=== PATIENT | male | born 1995 | race Hispanic/Latino ===

== ENCOUNTER 2023-05-05 20:39 | Emergency (ER) | payer OTHER, SELFPAY ==
--- OUTSIDE RECORDS SUMMARY | 2023-05-05 20:43 | XMS REPORT | Continuity of Care Document ---
:1995 Author Organization [facility] t Address [address] [place] [address] Care Team Providers Name Role Phone Pcp, Patient Does Not Have A Primary Care Physician [id number] ALTAGRACIA KILGORE Attending Clinician Unavailable Altagracia Kilgore MD Attending Clinician Payers Payer Name Policy Type Policy Number Effective Date Expiration Date S [facility] MEDICAID SSI PENDING 2022 PENDING 00:00:00 Problems Condition Condition Condition Status Onset Resolution Last Treating Co mments Source Name Details Category Date Date Treatment Clinician Date Social Social Disease Active Methodi anxiety anxiety 01-02 disorder disorder 00:00: Hospit a 00 l Cannabis Cannabis Disease Active Metho di use use 01-02 disorder, disorder, 00:00: Hosp dada mild, mild, 00 l abuse abuse Bipolar I Bipolar I Disease Active Met hodi disorder disorder 01-01 with with 00:00: Hospita depression depression 00 l , severe , severe Mushroom Mushroom Disease Active Unive rs poisoning poisoning 5-30 ity of 00:00: [place] 00 Medical Branch Bipolar Bipolar Disease Active Overview: Univ ers disorder disorder 14 Formattin ity of 00:00: g of this [place] 00 note Medical might be Branch different from the original. ICD10 Diagnosis Term Sampling Expert Utility Attention Attention Disease Active Overview: Univers deficit deficit -14 Formattin ity o f hyperactiv hyperactiv 00:00: g of this [place] ity ity 00 note Medical disorder disorder might be Bran ch (ADHD) (ADHD) different from the original. ICD10 Diagnosis Term Sampling Expert Utility Opposition Opposition Disease Active Overview : Univers al defiant al defiant 14 Formattin ity of disorder disorder 00:00: g of this [place] 00 note Medical might be Branch different from the original. ICD10 Diagnosis Term Sampling Expert Utility Impulse Impulse Disease Active Overview: Univ ers control control 03-11 Formattin ity o f disorder disorder 00:00: g of this [place] 00 note Medical might be Branch different from the original. ICD10 Diagnosis Term Sampling Expert Utility Allergies, Adverse Reactions, Alerts Allergy Allergy Status Severity Reaction(s) Onset Inactive Treating Comm ents Source Name Type Date Date Clinician IODINE DRUG Active Unknown-Cmnt 2021-06 Univ ers INGREDI 2-28 ity of 00:00: [place] 00 [facility] Iodine Propensi Active Unknown - 2021-06 Unive rs ty to See comments 08-25 ity of adverse 00:00: [place] reaction 00 [facility] iodine DA Active U Hives [facility] 9-21 00:00: 00 iodine DA Active U Hives [facility] 8-12 00:00: 00 Social History Social Habit Start Date Stop Date Quantity Comments Source History of tobacco 2014-11-24 Cigarette Smoker University of use 00:00:00 [facility] Sexual orientation [facility] Exposure to 2022-06-14 2022-06-24 Not sure University of SARS-CoV-2 (event) 00:00:00 20:47:00 [facility] Cigarettes smoked 2015-11-25 2015-11-25 Univers ity of current (pack per 00:00:00 00:00:00 [facility] ) - Reported Branch Cigarette 2015-11-25 2015-11-25 University of pack-years 00:00:00 00:00:00 [facility] Alcohol intake 2015-11-25 2015-11-25 0 /d University 00:00:00 00:00:00 [facility] Sex Assigned At [birth year] [facility] 00:00:00 00:00:00 Hospital Smoking Status Start Date Stop Date Source Tobacco smoking consumption Meth [facility] unknown Smokes tobacco daily 2015-11-25 00:00:00 Univers ity of [facility] Medications Ordered Filled Start Stop Current Ordering Indication Dosage Frequency Signature Comments Components Source Medication Medication Date Date Medication? Clinician (SIG) Name Name NaCl 0.9% 2021-06 No 1000mL at 999 Uni vers (NS) bolus 06-25 mL/hr, ity of infusion 05:00: 04:54 1,000 mL, [place] 1,000 mL 00 :00 IV Medical Infusion, Branch ONCE, 1 dose, On Wed06/24/22 at 2300, STAT QUEtiapine 2021-06 No 50mg 50 mg, Univ ers (SEROQUEL) 06-25 Oral, ity of tablet 50 04:45: 04:04 ONCE, 1 [place] mg 00 :00 dose, On Medical [facility] Branch 06/24/22 at 2245, Routine NaCl 0.9% 2021-06 No 1000mL at 999 Uni vers (NS) bolus 06-25 mL/hr, ity of infusion 04:00: 04:05 1,000 mL, [place] 1,000 mL 00 :00 IV Medical Infusion, Branch ONCE, 1 dose, On Wed06/24/22 at 2200, STAT diphenhydrA 2021-06 No 25mg 25 mg, Uni vers MINE 06-25 Slow IV ity of (BENADRYL) 03:00: 03:14 Push, [place] injection 00 :00 ONCE, 1 Medical 25 mg dose, On Branch 06/24/22 at 2100, STAT LORazepam 2021-06 No 1mg 1 mg, Slow U nivers (ATIVAN) 06-25 IV Push, ity of injection 1 03:00: 03:14 [place]CE[place] :[place] dose, On Medical Wed Branch 06/24/22 at 2100, STAT QUEtiapine 2021-06- No [id number] 50mg Take 1 Univers (SEROQUEL) 209-23 tablet by ity of 50 mg 00:00: 04:59 mouth in [place] tablet 00 :00 the Medical morning Branch and 1 tablet in the evening. Do all this for 90 days. Vital Signs Vital Name Observation Time Observation Value Comments Source Systolic blood 2022-06-25 05:00:00 104 mm[Hg] Univer sity of pressure [facility] Diastolic blood 2022-06-25 05:00:00 69 mm[Hg] [facility] Heart rate 2022-06-25 05:00:00 85 /min [facility] Respiratory rate 2022-06-25 05:00:00 13 /min [facility] Oxygen saturation in 2022-06-25 05:00:00 98 /min [facility] Arterial blood by [facility] Pulse oximetry [place] Body temperature 2022-06-25 02:54:00 37 [facility] Body height 2022-06-25 02:54:00 175.3 cm [facility] Body weight 2022-06-25 02:54:00 47.764 kg [facility] BMI 2022-06-25 02:54:00 15.55 kg/m2 [facility] Procedures Procedure Date / Time Performing Clinician Source Performed CBC WITH DIFF 2022-06-25 04:53:00 Altagracia Kilgore [facility] EKG-12 LEAD 2022-06-25 04:01:55 Altagracia Kilgore [facility] CREATINE KINASE 2022-06-25 03:12:00 Altagracia Kilgore [facility] COMP. METABOLIC PANEL 2022-06-25 03:12:00 [facility] ([id number]) [facility] SALICYLATE 2022-06-25 03:12:00 Altagracia Kilgore [facility] ETHANOL 2022-06-25 03:12:00 Altagracia Kilgore [facility] URINE DRUG (IMMUNOASSAY) 2022-06-25 03:12:00 [facility] WITH DIFF 2022-06-25 03:12:00 Altagracia Kilgore [facility] URINALYSIS 2022-06-25 03:12:00 Altagracia Kilgore [facility] Encounters Start End Encounter Admission Attending Care Care Encounter Source Date/Time Date/Time Type Type Clinicians Facility Department ID 2022-03-25 Outpatient [facility] [id number] [place] 15:19:46 [id number] Health 2021-03-18 Inpatient [facility] [id number] [facility] 18:08:00 14 2022-06-24 2022-06-25 Emergency X SAMPSON KILGORE ERT [id number] Univers 20:56:00 05:46:00 ALTAGRACIA [facility] 2022-06-24 2022-06-25 Emergency [facility] [id number] [facility] 20:56:00 05:46:00 Altagracia Haney [id number] [id number] [place] [id number] Branch 2021-03-18 2021-03-18 Emergency [facility] [id number] [facility] 18:08:00 18:08:00 14 Results Test Description Test Time Test Comments Results Result Comments Source Coronavirus PCR, COVID19 Rapid 2021-03-18 19:00:00 Test Item Value Reference Range Interpretation Comme nts Coronavirus PCR, COVID19 Rapid (test For use under Emergency Use code = SARSCOV2) Authorization (EUA) only. Coronavirus PCR, COVID19 Rapid (test Reference Range: Negative code = CPVGXPA53.1) SARS-CoV-2 PCR Result: (test code = Negative by PCR SARS-CoV-2 PCR Result:) COVID-19 Status: AsymptomaticDrug Screen,[id number] 18:35:00 Test Item Value Reference Range Interpretation Comments PCP Phencyclidine Screen,Urine (test Negative Negative code = PCPU) Amphetamine Screen,Urine (test code Negative Negative = AMPU) Methadone Screen,Urine (test code = Negative Negative METHU) Opiate Screen,Urine (test code = Negative Negative UOPIS) Barbituates Screen,Urine (test code Negative Negative = BARBU) Benzodiazepines Screen,Urine (test Negative Negative code = UBENZS) Cocaine Screen,Urine (test code = Negative Negative UCOCS) Cannabinoid Screen,Urine (test code Positive Negative A = UTHCS) Propoxyphene Screen, Urine (test Negative Negative code = UPROP) Urine [id number] 18:35:00 Test Item Value Reference Range Interpretation Comments RBC,Urine (test code = 0-1 /HPF None Seen URBC.XX) WBC,Urine (test code = 0-1 /HPF None Seen UWBC.XX) Calcium Oxalate Occasional /HPF None Seen Crystals,Urine (test code = UCALO) Mucus,Urine (test code = Moderate /LPF None Seen A UMUC) UA, Urinalysis Rflx Cult/[id number] 18:35:00 Test Item Value Reference Range Interpretation Comments Color,Urine (test code = Dark-Yellow Y UCOL) Clarity,Urine (test code = Clear Clear UCLAR) PH,Urine (test code = 6.5 5.5-8.5 UPH.XX) Specific [place],Urine 1.030 1.005-1.030 N (test code = USG) Blood,Urine (test code = Negative cells/uL Negative UBLD) Protein,Urine (test code = Trace mg/dL Negative A UPRO) Glucose,Urine (UA) (test Negative mg/dL Negative code = UGLU) Ketones,Urine (test code = Negative mg/dL Negative UKET) Nitrate,Urine (test code = Negative Negative UNIT) Bilirubin,Urine (test code Negative mg/dL Negative = UBIL) Urobilinogen,Urine (test 0.2 mg/dL Negative code = UURO) Leukocyte Esterase,Urine Negative cells/uL Negative (test code = ULEU) Complete Blood Count Auto [id number] 18:34:00 Test Item Value Reference Range Interpretation Comments White Blood Count (test code = 10.6 x10 3/uL 4.4-10.5 H WBCT) Red Blood Count (test code = 4.73 x10 6/uL 4.10-5.70 N RBC) Hemoglobin (test code = HGBT) 14.2 g/dL 13.4-17.4 N Hematocrit (test code = HCTT) 43.8 % 38.7-52.0 N Mean Corpuscular Volume (test 92.60 fL 80.00-100.00 N code = MCV) Mean Corpuscular Hemoglobin 30.0 pg 27.0-32.5 N (test code = MCH) Mean Corpuscular HGB Conc 32.40 g/dL 32.00-37.50 N (test code = MCHC) RDW Coefficient of Variation 13.2 % 11.5-14.5 N (test code = RDWCV) Platelet Count (test code = 329.0 x10 3/uL 140.0-440.0 N PLTT) Mean Platelet Volume (test 8.9 fL code = MPV) Immature Granulocytes % (Auto) 0.3 % 0.0-5.0 N (test code = IMMGRAN%) Neutrophils % (Auto) (test 65.0 % 36.0-70.0 N code = NE%) Lymphocytes % (Auto) (test 25.6 % 12.0-44.0 N code = LY%) Monocytes % (Auto) (test code 8.3 % 0.0-11.0 N = MO%) Eosinophils % (Auto) (test 0.2 % 0.0-7.0 N code = EO%) Basophils % (Auto) (test code 0.6 % 0.0-2.0 N = BA%) Immature Granulocytes # (Auto) 0.03 x10 3/uL (test code = IMMGRAN#) Neutrophils # (Auto) (test 6.9 x10 3/uL 1.6-7.4 N code = NE#) Lymphocytes # (Auto) (test 2.70 x10 3/uL 0.50-4.60 N code = LY#) Monocytes # (Auto) (test code 0.88 x10 3/uL 0.00-1.20 N = MO#) Eosinophils # (Auto) (test 0.02 x10 3/uL 0.00-0.74 N code = EO#) Basophils # (Auto) (test code 0.06 x10 3/uL 0.00-0.21 N = BA#) nRBC Abs (test code = NRBCA) 0 nRBC Pct (test code = NRBCP) 0 % Comprehensive Metabolic [id number] 18:34:00 Test Item Value Reference Range Interpretation Comments SODIUM (test code = NA) 142.0 mmol/L 136.0-145.0 N Potassium,K (test code = K) 3.7 mmol/L 3.0-5.1 N Chloride (test code = CL) 105 mmol/L 98-107 N Carbon Dioxide (test code = 28 mmol/L 20-31 N CO2) Anion Gap (test code = GAP) 9 mmol/L 5-15 N Blood Urea Nitrogen (test code 13 mg/dL 9-23 N = BUN) Creatinine (test code = CREATT) 0.80 mg/dL 0.55-1.02 N Creatinine Clr Calc Pharmacy 108.67 mL/min (test code = CRCLPHA) Estimated GFR ( Jessie > 60 mL/min/1.73m2 (test code = EGFRAA) Estimated GFR (Non Afr Jessie > 60 mL/min/1.73m2 (test code = EGFRNAA) BUN/Creatinine Ratio (test code 16 ratio 10-20 N = BCRATIO) Glucose (test code = GLU) 96 mg/dL 74-106 N Osmolality,Calculated (test 293.6 code = OSMOC) Calcium (test code = CA) 9.1 mg/dL 8.3-10.6 N Bilirubin,Total (test code = 2.0 mg/dL 0.2-1.1 H BILIT) Aspartate Amino Transferase 15 U/L 0-34 N (test code = AST) Alanine Aminotransferase (test 7 U/L 10-49 L code = ALT) Total Protein (test code = TP) 7.3 g/dL 5.7-8.2 N Albumin Level (test code = ALB) 5.0 g/dL 3.2-4.8 H Globulin (test code = GLOB) 2.3 mg/dL 2.3-3.5 N Albumin/Globulin Ratio (test 2.2 ratio 0.8-2.0 H code = AGRATIO) Alkaline Phosphatase (test code 72 U/L 46-116 N = ALP) Ethanol [id number] 18:34:00 Test Item Value Reference Range Interpretation Comments Ethanol (test code = ETOH) < 3 mg/dL Valproic Acid [id number] 09:07:51 Test Item Value Reference Range Interpretation Comments Valproic Acid Level (test code 114.0 ug/mL(g) 50.0-100.0 H = Valproic Acid Level) RPR [id number] 14:04:24 Test Item Value Reference Range Interpretation Comments RPR Qual (test code = RPR Qual) Non-Reactive Non-Reactive Reactive Control (test code = Reactive Reactive Control) Weak Reactive Control (test Weak Reactive code = Weak Reactive Control) Non-Reactive Control (test code Non-Reactive = Non-Reactive Control) Lot # (test code = Lot #) [id number] N Expiration Dt (test code = 04-27-20 N Expiration Dt) Thyroid Stimulating [id number] 08:22:31 Test Item Value Reference Range Interpretation Comments TSH (test code = TSH) 0.967 mIU/mL 0.270-4.200 Lipid [id number] 08:15:11 Test Item Value Reference Range Interpretation Comments Cholesterol Total 102 mg/dL 0-200 RISK OF HE ART (test code = DISEASEPublishe d by Cholesterol Total) [place] [employer] Angie lyte Optimal Borderl ine Increased RiskC HOL <200 200-239 >240TRI G <150 150-199 >200HDL Male >60 <40HDL Fema le >60 <50LDL <100 130 -159 >160LDL Near [facility] is 100-129 Triglycerides (test 88 mg/dL 9-200 code = Triglycerides) HDL (test code = HDL) 40 mg/dL 40-60 LDL (test code = LDL) 44 mg/dL 0-130 The eq uation being used in this calcula tion is LDL = (Chol - H DL) - (Trig / 5) VLDL (test code = 18 mg/dL 5-40 The equati on being used VLDL) in this calcula tion is VLDL = Trig / 5 Chol/HDL (test code = 2.6 ratio 0.0-5.0 Chol/HDL) LDL/HDL Ratio (test 1 N The equa tion being used code = LDL/HDL Ratio) in thi s calculation is LDL/HDL Ratio=L DL Calc/HDL Chol
[2023-05-05 21:28] LABS: Absolute Lymphocytes (CBC) 3.1 K/uL (0.7-4.9); Hematocrit 41.3 % (39.6-49.0); Lymphocytes % 27.6 % (15.3-44.8); MCV 89.1 fL (80-100); MPV 6.9 fL (7.6-11.3); Platelets 348 thou/uL (152-406); RBC Red Blood Cell Count 4.64 M/uL (4.33-5.43)
[2023-05-05] MEDS ORDERED: NA CHLORIDE 0.9% 1,000 ML ONE (21:33)
[2023-05-05 21:34] LABS: Protime INR 1.06
[2023-05-05 21:39] LABS: Specific Gravity 1.005 (1.005-1.030); Urine Bilirubin NEGATIVE (Negative); Urine Blood Negative (Negative); Urine Clarity Clear (Clear); Urine Color Colorless (Yellow); Urine Glucose NEGATIVE (Negative); Urine Protein NEGATIVE (Negative); Urine Urobilinogen Normal (Normal); Urine pH 7.5 (5.0-7.0)
[2023-05-05 21:53] LABS: ALT/SGPT 15 U/L (16-61); AST/SGOT 17 U/L (15-37); Albumin 3.9 g/dL (3.4-5.0); Alkaline Phosphatase 50 U/L (45-117); BUN Blood Urea Nitrogen 8 mg/dL (7-18); Bicarbonate 26 mEq/L (21-32); Bilirubin Direct 0.2 mg/dL (0-0.2); Bilirubin Indirect, Calculated 0.8 mg/dL (0.2-0.8); Glomerular Filtration Rate 124 ml/min (=/>90); Glucose Level 96 mg/dL (74-106); Protein, Total 7.2 g/dL (6.4-8.2); Sodium Level 138 mEq/L (136-145)
[2023-05-05 21:58] LABS: Barbiturates NEGATIVE (NEGATIVE); Benzodiazepines NEGATIVE (NEGATIVE); Cocaine NEGATIVE (NEGATIVE); METHAMPHETAM NEGATIVE (NEGATIVE); Methadone NEGATIVE (NEGATIVE); Opiates NEGATIVE (NEGATIVE); Phencyclidine NEGATIVE (NEGATIVE); THC Cannibis POSITIVE (NEGATIVE)
--- NOTE | 2023-05-05 22:28 | EDPHYS ---
Physician Documentation [facility] Name: Jacoby Rivera Age: 28 yrs Sex: Male : 1995 Arrival Date: 05/05/2023 Time: 20:39 Bed 19 Private MD: ED Physician Javi López HPI: 05/05 20:44 This 28 yrs old Male presents to ER via Unassigned with complaints of mirta suicidal, took mushrooms. 20:44 The patient presents to the emergency department with anxiety, depression. Onset: The mirta symptoms/episode began/occurred just prior to arrival, today. Past psychiatric history: Prior diagnosis: depression. suicidal, took shrooms. Associated signs and symptoms: The patient has no apparent associated signs or symptoms. Onset: The symptoms/episode began/occurred 2 day(s) ago. Severity of symptoms: At their worst the symptoms were mild in the emergency department the symptoms are unchanged. The patient has experienced similar episodes in the past, several times. Historical: - Allergies: 20:43 No Known Allergies; as6 - PMHx: 20:43 "phych"; as6 - PSHx: 20:43 hernia; as6 - Immunization history:: Adult Immunizations up to date. - Social history:: Smoking status: Patient reports the use of cigarette tobacco products. - Family history:: not pertinent. ROS: 20:44 Constitutional: Negative for fever, chills, and weight loss, Eyes: Negative for injury, mirta pain, redness, and discharge, ENT: Negative for injury, pain, and discharge, Neck: Negative for injury, pain, and swelling, Cardiovascular: Negative for chest pain, palpitations, and edema, Respiratory: Negative for shortness of breath, cough, wheezing, and pleuritic chest pain, Abdomen/GI: Negative for abdominal pain, nausea, vomiting, diarrhea, and constipation, Back: Negative for injury and pain, : Negative for injury, bleeding, discharge, and swelling, MS/Extremity: Negative for injury and deformity, Skin: Negative for injury, rash, and discoloration, Neuro: Negative for headache, weakness, numbness, tingling, and seizure, Allergy/Immunology: Negative for hives, rash, and allergies, Endocrine: Negative for neck swelling, polydipsia, polyuria, polyphagia, and marked weight changes, 20:44 Psych: Positive for anxiety, depression, suicidal ideation, Exam: 20:44 Constitutional: This is a well developed, well nourished patient who is awake, alert, mirta and in no acute distress. Head/Face: Normocephalic, atraumatic. Eyes: Pupils equal round and reactive to light, extra-ocular motions intact. Lids and lashes normal. Conjunctiva and sclera are non-icteric and not injected. Cornea within normal limits. Periorbital areas with no swelling, redness, or edema. ENT: Nares patent. No nasal discharge, no septal abnormalities noted. Tympanic membranes are normal and external auditory canals are clear. Oropharynx with no redness, swelling, or masses, exudates, or evidence of obstruction, uvula midline. Mucous membranes moist. Neck: Trachea midline, no thyromegaly or masses palpated, and no cervical lymphadenopathy. Supple, full range of motion without nuchal rigidity, or vertebral point tenderness. No Meningismus. Chest/axilla: Normal chest wall appearance and motion. Nontender with no deformity. No lesions are appreciated. Cardiovascular: Regular rate and rhythm with a normal S1 and S2. No gallops, murmurs, or rubs. Normal PMI, no JVD. No pulse deficits. Respiratory: Lungs have equal breath sounds bilaterally, clear to auscultation and percussion. No rales, rhonchi or wheezes noted. No increased work of breathing, no retractions or nasal flaring. Abdomen/GI: Soft, non-tender, with normal bowel sounds. No distension or tympany. No guarding or rebound. No evidence of tenderness throughout. Back: No spinal tenderness. No costovertebral tenderness. Full range of motion. Male : Normal genitalia with no discharge or lesions. Skin: Warm, dry with normal turgor. Normal color with no rashes, no lesions, and no evidence of cellulitis. MS/ Extremity: Pulses equal, no cyanosis. Neurovascular intact. Full, normal range of motion. Neuro: Awake and alert, GCS 15, oriented to person, place, time, and situation. Cranial nerves II-XII grossly intact. Motor strength 5/5 in all extremities. Sensory grossly intact. Cerebellar exam normal. Normal gait. 20:44 Psych: Behavior/mood is pleasant, cooperative, Affect is calm, Oriented to person, place, time, Patient has no thoughts/intents to harm self or others. Judgement / Insight is normal. Memory is normal. Recent memory is intact. Remote memory is intact. Delusions/hallucinations are not present. 21:43 ECG was reviewed by the Attending Physician. [facility] Vital Signs: 20:41 BP 133 / 86; Pulse 75; Resp 16 S; Temp 98.6(TE); Pulse Ox 99% on R/A; Weight 54.43 kg as6 (R); Height 5 ft. 9 in. (R); Pain 0/10; 23:50 BP 116 / 54; Pulse 76; Resp 18; Pulse Ox 98% ; Pain 0/10; jj7 05/06 01:36 BP 98 / 59; Pulse 72; Resp 18; Pulse Ox 98% ; Pain 0/10; jj7 02:26 BP 99 / 66; Pulse 64; Resp 17; Pulse Ox 96% ; Pain 0/10; j7 05/05 20:41 Body Mass Index 17.72 (54.43 kg, 175.26 cm) [facility] 05/05 20:41 Pain Scale: Adult as6 23:50 Pain Scale: Adult jj7 05/06 01:36 Pain Scale: Adult jj7 02:26 Pain Scale: Adult jj7 MDM: 05/05 20:47 Differential diagnosis: drug withdrawal. acute psychotic break, depression, psychosis mirta secondary to non-compliance. Differential Diagnosis altered mental status. Data reviewed: vital signs, nurses notes, lab test result(s), EKG. Consideration of Admission/Observation Patient was admitted/placed on observation. Escalation of care including admission/observation considered. I considered the following discharge prescriptions or medication management in the emergency department Medications were administered in the Emergency Department. See MAR. Test considered but Not performed: X-ray: no cxr. Historians other than the Patient: EMS: ems well in formed. Care significantly affected by the following chronic conditions: psych. Counseling: I had a detailed discussion with the patient and/or guardian regarding the historical points, exam findings, and any diagnostic results supporting the discharge/admit diagnosis, lab results. 20:49 Patient medically screened. [facility] 05/05 20:42 Order name: Acetaminophen; Complete Time: 22:09 [facility] 05/05 20:42 Order name: Basic Metabolic Panel; Complete Time: 22: [facility] 05/05 20:42 Order name: CBC with Diff; Complete Time: 22:09 [facility] 05/05 20:42 Order name: ETOH Level; Complete Time: 22: [facility] 05/05 20:42 Order name: Hepatic Function; Complete Time: 22: [facility] 05/05 20:42 Order name: PT-INR; Complete Time: 22: [facility] 05/05 20:42 Order name: Ptt, Activated; Complete Time: 22: [facility] 05/05 20:42 Order name: Salicylate; Complete Time: 22: [facility] 05/05 20:42 Order name: Urinalysis w/ reflexes; Complete Time: 22: [facility] 05/05 20:42 Order name: Urine Drug Screen; Complete Time: 22: [facility] 05/05 20:42 Order name: EKG; Complete Time: 20:43 [facility] 05/05 20:42 Order name: EKG - Nurse/Tech; Complete Time: 21:29 [facility] 05/05 20:42 Order name: IV Saline Lock; Complete Time: 21:24 [facility] 05/05 20:42 Order name: Labs collected and sent; Complete Time: 21:15 [facility] 05/05 20:42 Order name: Suicide Precautions; Complete Time: 21:15 [facility] 05/05 20:42 Order name: Suicide Screening ([place]); Complete Time: 21:15 [facility] EC:43 Rate is 66 beats/min. Rhythm is regular. QRS [place] is Normal. PA interval is normal. QRS mirta interval is normal. QT interval is normal. No Q waves. T waves are Normal. No ST changes noted. Clinical impression: NSR w/ Non-specific ST/T Changes and No evidence of ischemia. Interpreted by me. Reviewed by me. Administered Medications: 21:15 Drug: NS 0.9% IV 1000 ml IV at 1 bolus Per protocol; 1000 mL bolus Route: IV; Rate: 1 jj7 bolus; Site: left antecubital; 22:24 Follow up: IV Status: Completed infusion jj7 Disposition Summary: 05/05/23 22:28 Transfer Ordered Notes: Transfer Location: Psych Facility mirta Reason: Higher level of care mirta Condition: Fair mirta Problem: new mirta Symptoms: have improved mirta Accepting Physician: to psych(05/06/23 02:35) jj7 Diagnosis - Major depressive disorder, recurrent, moderate mirta - Other psychoactive substance abuse mirta - Suicidal ideations mirta Discharge Instructions: - Discharge Summary Sheet rv1 Forms: - Medication Reconciliation Form mirta - SBAR form rv1 Signatures: Dispatcher [employer] Javi Malagon MD MD cha Slawson, Ashby, RN RN as6 Cipriano Moreno RN RN jj7 Corrections: (The following items were deleted from the chart) 05/06 02:35 05/05 22:28 to psych mirta jj7
--- NOTE | 2023-05-05 22:28 | ER ---
Nurse's Notes [facility] Name: Jacoby Rivera Age: 28 yrs Sex: Male : 1995 Arrival Date: 05/05/2023 Time: 20:39 Bed 19 Private MD: Diagnosis: Major depressive disorder, recurrent, moderate;Other psychoactive substance abuse;Suicidal ideations Presentation: 05/05 20:44 Coronavirus screen: At this time, the client does not indicate any symptoms associated as6 with coronavirus-19. Ebola Screen: No symptoms or risks identified at this time. Initial Sepsis Screen: Does the patient meet any 2 criteria? No. Patient's initial sepsis screen is negative. Does the patient have a suspected source of infection? No. Patient's initial sepsis screen is negative. Risk Assessment: Do you want to hurt yourself or someone else? Patient reports desire/thoughts of hurting themselves or someone else. Provider notified. Onset of symptoms was May 05, 2023. 20:44 Acuity: RADHA 2 as6 20:44 Method Of Arrival: [facility] as6 20:44 Chief complaint: EMS states: called out for SI. pt took a large amount of mushrooms as6 today to try to kill himself. pt reports he has been depressed lately and had an attempt last week. pt reports seeing lots of different colors and shapes and hearing voices of "loud chaotic noise". 20:52 Care prior to arrival: Medication(s) given: Normal saline infusion, 1000 mL, IV as6 initiated. 20 GA, in the left antecubital area, Glucose check: 98. Triage Assessment: 20:52 General: Appears in no apparent distress. Behavior is calm, cooperative. Pain: Denies as6 pain. Historical: - Allergies: 20:43 No Known Allergies; as6 - PMHx: 20:43 "phych"; as6 - PSHx: 20:43 hernia; as6 - Immunization history:: Adult Immunizations up to date. - Social history:: Smoking status: Patient reports the use of cigarette tobacco products. - Family history:: not pertinent. Screenin:[address] [facility] ED Fall Risk Assessment (Adult) History of falling in the last 3 months, jj7 including since admission No falls in past 3 months (0 pts) Confusion or Disorientation No (0 pts) Intoxicated or Sedated No (0 pts) Impaired Gait No (0 pts) Mobility Assist Device Used No (0 pt) Altered Elimination No (0 pt) Score/Fall Risk Level 0 - 2 = Low Risk Oriented to surroundings, Maintained a safe environment. Abuse screen: Denies threats or abuse. Nutritional screening: No deficits noted. Tuberculosis screening: No symptoms or risk factors identified. Assessment: 21:00 General: Appears in no apparent distress. comfortable, Behavior is calm, cooperative, jj7 appropriate for age. Neuro: No deficits noted. Reports. 23:50 Reassessment: Patient is alert, oriented x 3, equal unlabored respirations, skin jj7 warm/dry/pink. P GIVEN SOMETHING TO EAT AND DRINK. PT TOLERATING WELL. 05/06 01:11 Reassessment: Patient is alert, oriented x 3, equal unlabored respirations, skin jj7 warm/dry/pink. PT RESTING COMFORTABLY IN BED. SITTER AT BEDSIDE. 01:38 Reassessment: NURSE TO NURSE COMPLETES. GIVEN TO KRYSTA VILLALBA. jj7 02:06 Reassessment: Patient and/or family updated on plan of care and expected duration. Pain jj7 level reassessed. Patient is alert/active/playful, equal unlabored respirations, skin warm/dry/pink. 02:26 Reassessment: [facility] AT BEDSIDE TO TRANSFER PT. jj7 Psych: 05/05 21:13 [facility] Suicide Severity Screening: In the past month, have you wished you were jj7 or wished you could go to sleep and not wake up? Patient responds "yes." Based off the client's responses additional C-SSRS screening is required. "In the past month, have you actually had any thoughts of killing yourself?" Patient responds "yes." Based off the client's response additional [facility] suicide severity screening questions to be further documented on paper forms. "In your lifetime, have you ever done anything, started to do anything, or prepared to do anything to end your life?" Patient responds "yes." Patient reports suicidal intent within 3 past months. Subjective: Patient's mood is FLAT Hallucinations are auditory. Objective: Patient is cooperative, Speech is normal, Affect is appropriate, flat. Interventions: Removed personal items and placed in bag. Searched person for dangerous items. Urine collected and sent for urine drug test. Belonging list filled out. Safety Checks: Personal items have been removed. Door is open. Patient uses Patient uses cocaine, Patient uses hallucinogens Patient uses marijuana. Commitment: Patient will be a voluntary commitment. Vital Signs: 20:41 BP 133 / 86; Pulse 75; Resp 16 S; Temp 98.6(TE); Pulse Ox 99% on R/A; Weight 54.43 kg as6 (R); Height 5 ft. 9 in. (R); Pain 0/10; 23:50 BP 116 / 54; Pulse 76; Resp 18; Pulse Ox 98% ; Pain 0/10; jj7 05/06 01:36 BP 98 / 59; Pulse 72; Resp 18; Pulse Ox 98% ; Pain 0/10; jj7 02:26 BP 99 / 66; Pulse 64; Resp 17; Pulse Ox 96% ; Pain 0/10; jj7 05/05 20:41 Body Mass Index 17.72 (54.43 kg, 175.26 cm) as6 05/05 20:41 Pain Scale: Adult as6 23:50 Pain Scale: Adult jj7 05/06 01:36 Pain Scale: Adult jj7 02:26 Pain Scale: Adult jj7 ED Course: 05/05 20:41 Patient arrived in ED. as6 20:41 Javi López MD is Attending Physician. [facility] 20:41 Arm band placed on. as6 20:44 Triage completed. as6 21:00 No apparent distress. Safety Checks: Personal items have been removed. The door is open jj7 or patient has been placed in a hallway bed/chair. Sitter present at this time. 21:00 Patient has correct armband on for positive identification. Warm blanket given. jj7 21:15 Acetaminophen Sent. jj7 21:15 Basic Metabolic Panel Sent. jj7 21:15 CBC with Diff Sent. jj7 21:15 ETOH Level Sent. jj7 21:15 Hepatic Function Sent. jj7 21:15 PT-INR Sent. jj7 21:15 Ptt, Activated Sent. jj7 21:15 Salicylate Sent. jj7 21:15 Urinalysis w/ reflexes Sent. jj7 21:15 Urine Drug Screen Sent. jj7 21:30 EKG done, by ED staff, reviewed by Javi López MD. ls5 22:23 Faxed pt clinicals to the following facilites for placement; Julia Solomon [facility], rv1 Urvashi Nguyen, [facility], [facility], Jo[facility], [facility], [place], [place]. 05/06 01:37 Pt accepted to [facility] by Dr. Shirley. rv1 01:57 Called Afsaneh with EMS for transfer truck, given 10 min ETA. rv1 02:30 No provider procedures requiring assistance completed. IV discontinued, intact, jj7 bleeding controlled, No redness/swelling at site. Pressure dressing applied. Administered Medications: 05/05 21:15 Drug: NS 0.9% IV 1000 ml IV at 1 bolus Per protocol; 1000 mL bolus Route: IV; Rate: 1 jj7 bolus; Site: left antecubital; 22:24 Follow up: IV Status: Completed infusion jj7 Medication: 05/06 02:35 VIS not applicable for this client. jj7 Outcome: 05/05 22:28 ER care complete, transfer ordered by . mirta 05/06 02:34 Transferred by ground EMS [facility]. Note: [facility]IAL jj7 Condition: good 02:35 Patient left the ED. jj7 Signatures: Javi López MD MD cha Slawson, Ashby, RN RN as6 Cipriano Moreno RN RN jj7 Roz Abdi rv1 Beau Durán ls5
[2023-05-06 02:39] VITALS: TEMP 98.6
[2023-05-06 02:43] VITALS: BP 99/66; O2SAT 96
--- NOTE | 2023-05-08 14:18 | EKG ---
Test Date: 2023-05-05 Test Time: 22:28:06 Stenotype Operator: ROBERT MEASUREMENT RESULTS: Intervals: Rate: 66 ND: 156 QRSD: 92 QT: 404 QTc: 423 [place]: P: 80 ND: 156 QRS: 96 T: 85 INTERPRETIVE STATEMENTS: Normal sinus rhythm Normal ECG No previous ECG available for comparison Electronically Signed On 05-08-23 14:09:40 SOFA COVER INSPECTOR by Tomás Anderson
== END 2023-05-06 02:35 ==
LOC: ER 20:39
DX: F33.1 Major depressive disorder, recurrent, moderate (principal); F19.10 Other psychoactive substance abuse, uncomplicated; Z72.0 Tobacco use
CPT/HCPCS: 36415; 80048; 80076; 80143; 80179; 80307; 81003; 82077; 85025; 85610; 85730; 93005; 96360; 99285; J7030

== ENCOUNTER 2024-01-29 03:20 | Emergency (ER) | payer SELFPAY ==
--- NOTE | 2024-01-29 03:33 | ER ---
Nurse's Notes [facility] Name: Jacoby Rivera Age: 29 yrs Sex: Male : 1995 Arrival Date: 01/29/2024 Time: 03:20 Bed 6 Private MD: Diagnosis: Acute loss of appetite, Concern about Health Presentation: 01/28 03:24 Chief complaint: EMS states: loss of appetite because he thinks he has radiation cp4 exposure from a microwave. States patient has used cocaine and mariuana. Coronavirus screen: Client denies travel out of the [place] in the last 14 days. At this time, the client does not indicate any symptoms associated with coronavirus-19. Ebola Screen: Patient negative for fever greater than or equal to 101.5 degrees Fahrenheit, and additional compatible Ebola Virus Disease symptoms Patient denies exposure to infectious person. Patient denies travel to an Ebola-affected area in the 21 days before illness onset. No symptoms or risks identified at this time. Initial Sepsis Screen: Does the patient meet any 2 criteria? No. Patient's initial sepsis screen is negative. Does the patient have a suspected source of infection? No. Patient's initial sepsis screen is negative. Risk Assessment: Do you want to hurt yourself or someone else? Patient reports no desire to harm self or others. Onset of symptoms was January 29, 2024. 03:24 Method Of Arrival: EMS: [facility] cp4 03:24 Acuity: RADHA 5 cp4 Triage Assessment: 03:27 General: Appears in no apparent distress. slender, unkempt. Pain: Denies pain. EENT: No cp4 deficits noted. Neuro: Level of Consciousness is awake, alert, obeys commands, Oriented to person, place, time, situation. Cardiovascular: No deficits noted. Respiratory: No deficits noted. GI: No deficits noted. : No deficits noted. Derm: No deficits noted. Musculoskeletal: No deficits noted. 03:41 General: Behavior is calm, cooperative, appropriate for age. cp4 Historical: - Allergies: 03:27 Iodine; cp4 - Immunization history:: Adult Immunizations unknown. - Infectious Disease History:: Denies. - Social history:: Smoking status: Reported history of juuling and/or vaping. - Family history:: not pertinent. Screenin:29 [facility] ED Fall Risk Assessment (Adult) History of falling in the last 3 months, cp4 including since admission No falls in past 3 months (0 pts) Confusion or Disorientation No (0 pts) Intoxicated or Sedated No (0 pts) Impaired Gait No (0 pts) Mobility Assist Device Used No (0 pt) Altered Elimination No (0 pt) Score/Fall Risk Level 0 - 2 = Low Risk Oriented to surroundings, Maintained a safe environment, Assessed \T\ reinforced patient's understanding of fall precautions, Hourly rounding (assess needs \T\ fall precautionary measures) done. Abuse screen: Denies threats or abuse. Nutritional screening: No deficits noted. Tuberculosis screening: No symptoms or risk factors identified. Assessment: 03:29 Reassessment: No changes from previously documented assessment. cp4 Vital Signs: 03:24 BP 132 / 79; Pulse 74; Resp 16; Temp 98; Pulse Ox 100% ; Pain 0/10; cp4 03:24 Pain Scale: Adult cp4 Townsend Coma Score: 23:23 Eye Response: spontaneous(4). Motor Response: obeys commands(6). Verbal Response: sp4 oriented(5). Total: 15. ED Course: 03:23 Patient arrived in ED. cp4 03:24 Jennifer Liao is Primary Nurse. cp4 03:27 Triage completed. cp4 03:27 Arm band placed on right wrist. Patient placed in an exam room, on a stretcher. cp4 03:29 Bed in low position. Call light in reach. Side rails up X 1. cp4 03:29 No provider procedures requiring assistance completed. Patient did not have IV access cp4 during this emergency room visit. 03:30 Mario Joe MD is Attending Physician. sp4 03:40 Provided Education on: medical screening exam. cp4 Administered Medications: No medications were administered Medication: 03:29 VIS not applicable for this client. cp4 Outcome: 03:33 Discharge ordered by . sp4 03:40 Discharged to home ambulatory, cp4 03:40 Condition: stable 03:40 Discharge instructions given to patient, Instructed on discharge instructions, follow up and referral plans. Demonstrated understanding of instructions, follow-up care, 03:41 Patient left the ED. cp4 Signatures: Mario Joe MD MD sp4 Jennifer Liao cp4
--- NOTE | 2024-01-29 03:33 | EDPHYS ---
Physician Documentation [facility] Name: Jacoby Rivera Age: 29 yrs Sex: Male : 1995 Arrival Date: 01/29/2024 Time: 03:20 Bed 6 Private MD: ED Physician Mario Joe HPI: 01/28 03:30 This 29 yrs old Male presents to ER via EMS with complaints of Loss of sp4 appetite. 23:23 Patient states he is using cocaine, patient presents for evaluation of loss of sp4 appetite. . Historical: - Allergies: 03:27 Iodine; cp4 - Immunization history:: Adult Immunizations unknown. - Infectious Disease History:: Denies. - Social history:: Smoking status: Reported history of juuling and/or vaping. - Family history:: not pertinent. ROS: 23:23 Constitutional: Negative for fever, chills, and weight loss, positive for loss of sp4 appetite 23:23 All other systems are negative, Exam: 23:23 Constitutional: This is a well developed, appearing young male, otherwise unremarkable sp4 Head/Face: Normocephalic, atraumatic. Eyes: Pupils equal round and reactive to light, extra-ocular motions intact. Lids and lashes normal. Conjunctiva and sclera are not injected. Cornea within normal limits. Periorbital areas with no swelling, redness, or edema. ENT: Nares patent. No nasal discharge, no septal abnormalities noted. Tympanic membranes are normal and external auditory canals are clear. Oropharynx with no redness, swelling, or masses, exudates, or evidence of obstruction, uvula midline. Mucous membranes moist. Neck: Trachea midline, no thyromegaly or masses palpated, and no cervical lymphadenopathy. Supple, full range of motion without nuchal rigidity, or vertebral point tenderness. Chest/axilla: Normal chest wall appearance and motion. Nontender with no deformity. No lesions are appreciated. Cardiovascular: Regular rate and rhythm with a normal S1 and S2. No gallops, murmurs, or rubs. Normal PMI, no JVD. No pulse deficits. Respiratory: Lungs have equal breath sounds bilaterally, clear to auscultation and percussion. No rales, rhonchi or wheezes noted. No increased work of breathing, no retractions or nasal flaring. Abdomen/GI: Soft, with normal bowel sounds. No distension or tympany. No guarding or rebound. No evidence of tenderness throughout. Back: No spinal tenderness. No costovertebral tenderness. Skin: Warm, dry with normal turgor. Normal color with no rashes, no lesions, and no evidence of cellulitis. MS/ Extremity: Pulses equal, no cyanosis. Neurovascular intact. Full, normal range of motion. Neuro: Awake and alert, GCS 15, oriented to person, place, time, and situation. Cranial nerves II-XII grossly intact. Motor strength 5/5 in all extremities. Sensory grossly intact. Psych: Awake, alert, with orientation to person, place and time. Behavior, mood, and affect are within normal limits Vital Signs: 03:24 BP 132 / 79; Pulse 74; Resp 16; Temp 98; Pulse Ox 100% ; Pain 0/10; cp4 03:24 Pain Scale: Adult cp4 [place] Coma Score: 23:23 Eye Response: spontaneous(4). Motor Response: obeys commands(6). Verbal Response: sp4 oriented(5). Total: 15. MDM: 03:33 Patient medically screened. sp4 23:23 Differential Diagnosis altered mental status, Drug intoxication,. Data reviewed: vital sp4 signs, nurses notes, EMS record. ED course: Patient was informed of the loss of appetite is not an emergent complaint.. Administered Medications: No medications were administered Disposition Summary: 01/29/24 03:33 Discharge Ordered Notes: Location: Home sp4 Problem: new sp4 Symptoms: have improved sp4 Condition: Stable sp4 Diagnosis - Acute loss of appetite, Concern about Health sp4 Followup: sp4 - With: Private Physician - When: 7 - 10 days - Reason: Recheck today's complaints Discharge Instructions: - Discharge Summary Sheet sp4 - Medical Screening Exam sp4 Signatures: Mario Joe MD MD sp4 Jennifer Liao 4
[2024-01-29 08:32] VITALS: BP 132/79; TEMP 98; O2SAT 100
== END 2024-01-29 03:41 | disposition home or self-care (01) ==
LOC: ER 03:20
DX: R63.0 Anorexia (principal); Z71.1 Person with feared health complaint in whom no diagnosis is made
CPT/HCPCS: 99283